=== PATIENT | male | born 1960 | race Caucasian/White ===

== ENCOUNTER 2017-09-28 18:56 | Emergency (ER) | payer OTHER ==
[~2017-09-28] VITALS: Ht 177.8 cm; Wt 68.6 kg
[~2017-09-28 18:56] MED LIST: CEFTIN500 MG PO; DEPAKENE250 MG PO; DEPAKENE250 MG/5 M PO; DULCOLAX10 MG PR; FIBER TABS625 MG PO; MILK OF MAGNESI10 ML PO; MIRALAX17 GM PO; MULTI-DAY VITA1 EACH PO; OLANZAPINE5 MG PO; PRILOSEC20 MG PO; SEROQUEL12.5 MG PO; TYLENOL REGULA325 MG PO; VALPROIC ACID250 MG PO; ZYRTEC SYRUP1 MG/ML PO; ZYRTEC10 M3 PO; [UNRECOGNIZED DRUG - REMARK]
[2017-09-28 21:49] LABS: APPEARANCE CLEAR ((CLEAR)); BILIRUBIN NEGATIVE; BLOOD SMALL; COLOR YELLOW ((YELLOW)); GLUCOSE (STRIP) NEGATIVE; KETONES NEGATIVE; LEUKOCYTES NEGATIVE; NITRITE NEGATIVE; PROTEIN (STRIP) NEGATIVE
[2017-09-28 22:12] LABS: HEMATOCRIT 39.6 % (38.0-50.0); HEMOGLOBIN 13.7 G/DL (12.5-16.6); MCH 30.4 PG (29.0-34.0); MCHC 34.6 G/DL (30.0-36.0); MCV 87.8 FL (86-99); PLATELET COUNT 187 K/uL (156-360); RBC DIS.WIDTH-CV 12.7 % (11.8-14.6); RBC DIS.WIDTH-SD 41.1 % (39-53); RED BLOOD COUNT 4.51 M/uL (4.00-5.50); WHITE BLOOD COUNT 4.3 K/uL (4.1-10.2)
[2017-09-28 22:15] LABS: BACTERIA NONE SEEN /HPF; EPITHELIAL CELLS RARE /HPF; HYALINE CASTS 0-5 /LPF; MUCUS TRACE /LPF; RED BLOOD CELLS 15-20 /HPF (0-5); UCUL ADDED? NO; WHITE BLOOD CELLS 0-5 /HPF (0-5)
[2017-09-28 22:22] LABS: ALBUMIN 3.6 g/dL (3.2-4.8); CHLORIDE 103 mEq/L (99-109); POTASSIUM 3.7 mEq/L (3.7-5.4); SODIUM 139 mEq/L (136-147)
[2017-09-28 22:25] LABS: GLUCOSE 109 mg/dL (70-99); TOTAL PROTEIN 6.7 g/dL (6.4-8.3)
[2017-09-28 22:26] LABS: TOTAL BILIRUBIN 0.3 mg/dL (0.0-1.0)
[2017-09-28 22:28] LABS: ALKALINE PHOSPHATASE 60 IU/L (3-129); CREATININE 0.7 mg/dL (0.6-1.3); GFR ESTIMATE (CALCULATED) > 59 mL/min/ (58.99-99999)
[2017-09-28 22:29] LABS: UREA NITROGEN (BUN) 21 mg/dL (9-23)
[2017-09-28 22:30] LABS: AST (GOT) 22 IU/L (2-34); DIRECT BILIRUBIN 0.1 mg/dL (0.0-0.3)
[2017-09-28 22:31] LABS: ALT (GPT) 12 IU/L (3-49)
[2017-09-28 22:33] LABS: LIPASE 36 U/L (1.0-51.0)
[2017-09-28 23:03] VITALS: BP 121/84
== END 2017-09-28 23:04 | disposition home or self-care (01) ==
LOC: EME 18:56
PROVIDERS: Physician Assistant
DX: R32 Unspecified urinary incontinence (principal); J30.2 Other seasonal allergic rhinitis; R56.9 Unspecified convulsions; K75.9 Inflammatory liver disease, unspecified; F79 Unspecified intellectual disabilities; F63.9 Impulse disorder, unspecified; F90.9 Attention-deficit hyperactivity disorder, unspecified type
CPT/HCPCS: 80048; 80076; 81003; 83690; 85027; 99281; 99284; J1630; J2060